=== PATIENT | male | born 1935 | race Caucasian/White ===

== ENCOUNTER 2019-03-11 23:22 | Emergency (ER) | payer OTHER ==
[2019-03-11 23:33] VITALS: BP 180/74
--- NOTE | 2019-03-11 23:40 | ED Physician Documentation ---
History of Present Illness - Stated complaint Stated Complaint: R ARM PX - Chief complaint Chief Complaint: General - History obtained from History obtained from: Patient, Family - History of Present Illness Timing: How many hours ago (several) Pain level max: 1 Pain level now: 1 - Additonal information Additional information: 83-year-old male presents to the emergency department after encountering stinging serjio on the ventral aspect of the right wrist. He states that his veins appear more prominent than usual and he is concerned about blood poisoning. No redness. No fevers. Nothing makes it better or worse. Review of Systems Constitutional: denies: Fever, Chills GI: denies: Vomiting Skin: denies: Rash Musculoskeletal: denies: Neck pain, Back pain Neurologic: denies: Headache PD PAST MEDICAL HISTORY - Past Medical History Past Medical History: Yes Neuro: Other Other Past Medical History: lumbar stenosis - Allergies Allergies/Adverse Reactions: Allergies Allergy/AdvReac Type Severity Reaction Status Date / Time No Known Drug Allergies Allergy Verified 03/11/19 23:35 - Social History Does the pt smoke?: No Smoking Status: Never smoker PD ED PE NORMAL - Vitals Vital signs reviewed: Yes - General General: Alert and oriented X 3, No acute distress - HEENT HEENT: Moist mucous membranes - Derm Derm: Warm and dry - Extremities Extremities: Other (Normal examination of the extremities. No redness. No swelling.) - Neuro Neuro: Alert and oriented X 3 - Psych Psych: Normal mood, Normal affect Results - Vitals Vitals: Vital Signs - 24 hr 03/11/19 23:30 Temperature 36.8 C Heart Rate 68 Respiratory 18 Rate Blood Pressure 180/74 H O2 Saturation 98 Oxygen O2 Source Room air PD MEDICAL DECISION MAKING - ED course Complexity details: considered differential, d/w patient ED course: No acute findings on exam. No evidence to suggest sepsis, lymphangitis, cellulitis. Patient and family counseled regarding signs and symptoms for which I believe and urgent re-evaluation would be necessary. Patient with good understanding of and agreement to plan and is comfortable going home at this time This document was made in part using voice recognition software. While efforts are made to proofread this document, sound alike and grammatical errors may occur. Departure - Departure Disposition: 01 Home, Self Care Clinical Impression: Nettle sting Condition: Good Follow-Up: your,doctor as needed [Other] Comments: Return if you worsen. Follow-up with your doctor for recheck of your blood pressure. You can try cold water and a baking soda paste for the stinging sensation. Discharge Date/Time: 03/11/19 23:45
== END 2019-03-11 23:45 | disposition home or self-care (01) ==
LOC: ED 23:22
DX: T63.791A Toxic effect of contact with other venomous plant, accidental (unintentional), initial encounter (principal); M25.531 Pain in right wrist; X58.XXXA Exposure to other specified factors, initial encounter
CPT/HCPCS: 99283

== ENCOUNTER 2019-08-18 08:12 | Emergency (ER) | payer OTHER ==
[2019-08-18] MEDS ORDERED: DEXAMETHASONE 10 MG/ML VIAL PO STA (10:35)
[2019-08-18] MEDS ORDERED: CHERRY SYRUP 10 ML UDC PO ONE (10:35)
--- NOTE | 2019-08-18 10:38 | ED Physician Documentation ---
PD HPI URI - Stated complaint Stated Complaint: SOA - Chief complaint Chief Complaint: Resp - History obtained from History obtained from: Patient, Family - History of Present Illness Timing - onset: How many days ago (2) Timing duration: Days (2) Timing details: Gradual onset, Still present Associated symptoms: Nasal congestion, Rhinorrhea, Dry cough, Dyspnea Contributing factors: Sick contact (daughter sick with similar) Improves by: Rest Similar symptoms before: Diagnosis (bronchitis) Recently seen: Not recently seen - Additional information Additional information: Previously well 84-year-old male has developed a cough and congestion about 2 days ago last night he struggled to get her breath and felt that he was having a hard time getting a full deep breath. He states that today he is breathing well and not having wheezing as he was last night. He feels that he is coughed up something that has cleared his airway. Review of Systems Constitutional: denies: Fever Eyes: denies: Decreased vision Ears: denies: Ear pain Nose: reports: Rhinorrhea / runny nose, Congestion Throat: denies: Sore throat Cardiac: denies: Chest pain / pressure, Palpitations Respiratory: reports: Dyspnea, Cough, Wheezing GI: denies: Nausea, Vomiting : denies: Dysuria PD PAST MEDICAL HISTORY - Past Medical History Neuro: Other - Present Medications Home Medications: Ambulatory Orders Medication Instructions Recorded Confirmed Azithromycin [Zithromax] 250 mg PO DAILY #6 tablet 08/18/19 Benzonatate [Tessalon Perle] 100 - 200 mg PO TID PRN #30 capsule 08/18/19 metFORMIN [Glucophage] 1,000 mg PO BIDWM 08/18/19 08/18/19 - Allergies Allergies/Adverse Reactions: Allergies Allergy/AdvReac Type Severity Reaction Status Date / Time No Known Drug Allergies Allergy Verified 08/18/19 08:24 - Social History Does the pt smoke?: No Smoking Status: Never smoker PD ED PE NORMAL - Vitals Vital signs reviewed: Yes (hypertensive ) - General General: Alert and oriented X 3, No acute distress, Well developed/nourished - HEENT HEENT: Atraumatic, PERRL, EOMI, Other (left TM is minimally inflammed right is clear mucous membranes are dry. ) - Neck Neck: Supple, no meningeal sign, No bony TTP - Cardiac Cardiac: RRR, No murmur - Respiratory Respiratory: No respiratory distress, Clear bilaterally - Abdomen Abdomen: Soft, Non tender - Back Back: No CVA TTP, No spinal TTP - Derm Derm: Normal color, Warm and dry, No rash - Extremities Extremities: No deformity, No edema - Neuro Neuro: Alert and oriented X 3, [employer] 2-12 intact, No motor deficit, No sensory deficit, Normal speech Eye Opening: Spontaneous Motor: Obeys Commands Verbal: Oriented GCS Score: 15 - Psych Psych: Normal mood, Normal affect Results - Vitals Vitals: Vital Signs - 24 hr 08/18/19 08:22 Temperature 36.8 C Heart Rate 69 Respiratory 22 Rate Blood Pressure 159/77 H O2 Saturation 96 Oxygen O2 Source Room air PD MEDICAL DECISION MAKING - ED course Complexity details: considered differential, d/w patient, d/w family ED course: 84-year-old male with cough and congestion has what sounds like mucus plugging which he has cleared now he is not having wheezing currently. He has minimal signs of inflammation in the upper airway and he is administered dexamethasone 10 mg orally[address] We will place him on some azithromycin. Departure - Departure Disposition: 01 Home, Self Care Clinical Impression: Bronchitis Condition: Stable Instructions: ED Upper Resp Infec Abx Tx Follow-Up: Seth Ray MD [Primary Care Provider] - Prescriptions: Azithromycin [Zithromax] 250 mg PO DAILY #6 tablet Benzonatate [Tessalon Perle] 100 - 200 mg PO TID PRN #30 capsule PRN Reason: Cough
[2019-08-18 10:47] VITALS: BP 154/76
== END 2019-08-18 10:47 | disposition home or self-care (01) ==
LOC: ED 08:12
DX: J40 Bronchitis, not specified as acute or chronic (principal)
CPT/HCPCS: 99282; 99283; A9270